=== PATIENT | male | born 1975 | race Caucasian/White ===

== ENCOUNTER 2022-05-19 08:45 | Outpatient (CLI) | payer OTHER | END 2022-05-19 09:05 | LOC: SLEEP 08:45 | PROVIDERS: ATTEND Nurse Practitioner Family | DX: G47.33 Obstructive sleep apnea (adult) (pediatric) (principal); G47.10 Hypersomnia, unspecified; G47.9 Sleep disorder, unspecified; G47.36 Sleep related hypoventilation in conditions classified elsewhere; F06.30 Mood disorder due to known physiological condition, unspecified; R06.83 Snoring | CPT/HCPCS: G0399 ==